=== PATIENT | female | born 1930 | race Caucasian/White ===

== ENCOUNTER 2016-04-14 14:57 | Emergency (ER) | payer MEDICARE, OTHER ==
[2016-04-14 15:25] VITALS: BP 102/49
--- NOTE | 2016-04-14 15:25 | ER Document Report ---
ED Medical Screen (RME) - General Stated Complaint: EAR PAIN Time seen by provider: 15:19 Mode of Arrival: Ambulatory Information source: Patient Notes: 46 yo [address] bailey the urologist today due to sx of bilateral intermiittenet (few seconds) sharp ear pain, frontal headachee and shivers. She had urethral stent placed 1 week ago and has hematuria now, and no bm since the stent placed. TRAVEL OUTSIDE OF THE [place] IN LAST 30 DAYS: No
[2016-04-14 16:03] LABS: ABSOLUTE BASOPHILS # (AUTO) 0.1 10^3/uL (0.0-0.2); ABSOLUTE LYMPHOCYTES (AUTO) 1.9 10^3/uL (0.5-4.7); ABSOLUTE NEUT (AUTO) 10.3 10^3/uL (1.7-8.2); BASOPHILS % (AUTO) 0.4 % (0-2); EOSINOPHILS % (AUTO) 0.1 % (0-6); HEMATOCRIT 38.5 % (36.0-47.0); HEMOGLOBIN 12.9 g/dL (12.0-15.5); HGB HCT DIFFERENCE 0.2; LYMPHOCYTES % (AUTO) 13.2 % (13-45); MEAN CORPUSCULAR HEMOGLOBIN 30.5 pg (27.0-33.4); MEAN CORPUSCULAR HGB CONC 33.6 g/dL (32.0-36.0); MEAN CORPUSCULAR VOLUME 91 fl (80-97); MONOCYTES % (AUTO) 13.8 % (3-13); RED BLOOD COUNT 4.24 10^6/uL (3.72-5.28); RED CELL DISTRIBUTION WIDTH 13.2 % (11.5-14.0); SEGMENTED NEUTROPHILS % (AUTO) 72.5 % (42-78); WHITE BLOOD COUNT 14.2 10^3/uL (4.0-10.5)
[2016-04-14 16:22] LABS: ALANINE AMINOTRANSFERASE 35 U/L (9-52); ALKALINE PHOSPHATASE 56 U/L (38-126); ANION GAP 13 (5-19); ASPARTATE AMINO TRANSFERASE 22 U/L (14-36); BILIRUBIN,TOTAL 1.1 mg/dL (0.2-1.3); BLOOD UREA NITROGEN 16 mg/dL (7-20); CARBON DIOXIDE 27 mmol/L (22-30); CHLORIDE 91 mmol/L (98-107); CREATININE RESULT 0.96 mg/dL (0.52-1.25); GLUCOSE 97 mg/dL (75-110); POTASSIUM 3.9 mmol/L (3.6-5.0); TOTAL PROTEIN 6.5 g/dL (6.3-8.2)
[2016-04-14 17:04] LABS: APPEARANCE,URINE CLOUDY; BILIRUBIN,URINE NEGATIVE (NEGATIVE); GLUCOSE, URINE NEGATIVE (NEGATIVE); KETONES,URINE TRACE mg/dL (NEGATIVE); LEUKOCYTE ESTERASE,URINE MODERATE (NEGATIVE); NITRITE,URINE NEGATIVE (NEGATIVE); PROTEIN,URINE 100 mg/dL (NEGATIVE); URINE SPECIFIC GRAVITY 1.008; UROBILINOGEN,URINE NEGATIVE mg/dL (<2.0)
--- NOTE | 2016-04-14 17:05 | ER Document Report ---
ED General - General Chief Complaint: Ear Pain Stated Complaint: EAR PAIN Time seen by provider: 16:58 Mode of Arrival: Ambulatory Information source: Patient Notes: 86-year-old female presents to ED for fever and chills since her urinary stent placed on Friday by Dr. Castaneda. She has also had bilateral earaches with a headache for a few days. She states she is also not had a stool since Friday and she has chronic constipation and has medications at home. TRAVEL OUTSIDE OF THE [place] IN LAST 30 DAYS: No - HPI Onset: Other Onset/Duration: Gradual - Friday, Worse Quality of pain: Achy, Throbbing - Headache and ear pain Severity: Moderate Pain Level: 4 Associated symptoms: Earache, Headache, Other - Hematuria states no BM since Friday Exacerbated by: Denies Relieved by: Denies Similar symptoms previously: Yes Recently seen / treated by doctor: Yes - Related Data Allergies/Adverse Reactions: Sulfa (Sulfonamide Antibiotics) Allergy (Verified 04/14/16 15:27) Past Medical History - General Information source: Patient - Social History Smoking Status: Never Smoker Cigarette use (# per day): No Chew tobacco use (# tins/day): No Smoking Education Provided: No Frequency of alcohol use: None Drug Abuse: None Lives with: Family Family History: Reviewed & Not Pertinent Patient has suicidal ideation: No Patient has homicidal ideation: No - Past Medical History Cardiac Medical History: Reports: Hx Atrial Fibrillation Pulmonary Medical History: Reports: None EENT Medical History: Reports: None Neurological Medical History: Reports: None Endocrine Medical History: Reports: None Renal/ Medical History: Reports: Hx Kidney Stones, Hx Ovarian Cysts Malignancy Medical History: Reports: Hx Skin Cancer GI Medical History: Reports: Hx Gastroesophageal Reflux Disease, Hx Colonoscopy , Hx Endoscopy Musculoskeltal Medical History: Reports Hx Arthritis, Reports Hx Musculoskeletal Deformity Skin Medical History: Reports None Psychiatric Medical History: Reports: None Traumatic Medical History: Reports: None Infectious Medical History: Reports: None Past Surgical History: Reports: Hx Cholecystectomy, Hx Hysterectomy, Hx Kidney ( Renal Surgery) - Urethral stents and lithotripsy, Hx Orthopedic Surgery - Toe surgeries bilateral shoulders due to bursitis and arthritis Review of Systems - Review of Systems Constitutional: Malaise EENT: Ear pain, Nose discharge, Sinus discharge Cardiovascular: No symptoms reported Respiratory: No symptoms reported Gastrointestinal: No symptoms reported Genitourinary: Flank pain - Right, Hematuria Female Genitourinary: No symptoms reported Musculoskeletal: No symptoms reported Skin: No symptoms reported Hematologic/Lymphatic: No symptoms reported Neurological/Psychological: Headaches -: Yes All other systems reviewed and negative Physical Exam - Vital signs Vitals: Temp Pulse Resp BP Pulse Ox 99.3 F 97 16 102/49 L 96 04/14/16 15:24 04/14/16 15:24 04/14/16 15:24 04/14/16 15:24 04/14/16 15:24 Interpretation: Normal - General General appearance: Appears well, Alert - HEENT Head: Normocephalic, Atraumatic Eyes: Normal Pupils: PERRL Ears: Normal External canal: Normal Tympanic membrane: Normal Sinus: Normal Nasal: Purulent discharge, Swelling Mouth/Lips: Normal Mucous membranes: Normal Pharynx: Post nasal drainage Neck: Normal - Respiratory Respiratory status: No respiratory distress Chest status: Nontender Breath sounds: Normal Chest palpation: Normal - Cardiovascular Rhythm: Regular Heart sounds: Normal auscultation Murmur: No - Abdominal Inspection: Normal Distension: No distension Bowel sounds: Normal Tenderness: Nontender Organomegaly: No organomegaly - Back Back: Normal, Nontender, CVA tenderness - Right - Extremities General upper extremity: Normal inspection, Nontender, Normal color, Normal ROM , Normal temperature General lower extremity: Normal inspection, Nontender, Normal color, Normal ROM , Normal temperature, Normal weight bearing. No: Feliz's sign - Neurological Neuro grossly intact: Yes Cognition: Normal Orientation: AAOx4 [place] Coma Scale Eye Opening: Spontaneous Harper Coma Scale Verbal: Oriented [place] Coma Scale Motor: Obeys Commands Harper Coma Scale Total: 15 Speech: Normal Motor strength normal: LUE, RUE, LLE, RLE Sensory: Normal - Psychological Associated symptoms: Normal affect, Normal mood - Skin Skin Temperature: Warm Skin Moisture: Dry Skin Color: Normal Course - Re-evaluation Re-evalutation: 04/14/16 17:22 Discussed labs with patient and family. - Vital Signs Vital signs: Temp Pulse Resp BP Pulse Ox 99.3 F 97 16 102/49 L 96 04/14/16 15:24 04/14/16 15:24 04/14/16 15:24 04/14/16 15:24 04/14/16 15:24 - Laboratory Result Diagrams: 04/14/16 15:55 04/14/16 15:55 Laboratory results interpreted by me: 04/14/16 04/14/16 04/14/16 15:55 15:55 16:36 WBC 14.2 H Plt Count 146 L Monocytes % 13.8 H Absolute Neutrophils 10.3 H Absolute Monocytes 2.0 H Sodium 131.0 L Chloride 91 L Est GFR (Non-Af Amer) 55 L Urine Protein 100 H Urine Ketones TRACE H Urine Blood LARGE H Ur Leukocyte Esterase MODERATE H Urine Ascorbic Acid 40 H Discharge - Discharge Clinical Impression: Hematuria URI (upper respiratory infection) Qualifiers: URI type: unspecified URI Qualified Code(s): J06.9 - Acute upper respiratory infection, unspecified Condition: Stable Disposition: HOME, SELF-CARE Additional Instructions: Hematuria Hematuria, or blood in your urine, can be caused by minor medical problems , such as a bladder infection, or by more serious medical conditions, such as kidney stones or even tumors of the bladder or kidney. If the cause of the hematuria is known (such as a bladder infection) and can be treated, it may not need further evaluation. If the cause is not known, it will usually require further evaluation by a specialist, such as a urologist. In particular, unexplained hematuria in the older patient must be evaluated to rule out a serious condition, such as a bladder or kidney tumor. If the hematuria worsens or you are passing clots and then are unable to urinate, you should be re-evaluated. A catheter may need to be placed in the bladder to permit passage of urine. If you develop high fever, severe pain, or other new or worsening symptoms, return to the Emergency Department for re- evaluation. UPPER RESPIRATORY ILLNESS: You have a viral infection of the respiratory passages -- a "cold." This common infection causes nasal congestion, drainage, and often sore throat and cough. It is highly contagious. The disease usually lasts about 10 to 14 days. There is no "cure" for the viral infection -- it must run its course. If there is a complication, such as bacterial infection in the nose, sinuses, middle ear, or bronchial tubes, antibiotics may be required. The antibiotics won't affect the virus. Drink plenty of fluids. A humidifier may help. An expectorant medication or decongestant may make you more comfortable. Use acetaminophen or ibuprofen for fever or aches. See the doctor if fever persists over two days, if there is any significant worsening of your symptoms, or if you simply fail to improve as expected. USE OF ACETAMINOPHEN (Tylenol): Acetaminophen may be taken for pain relief or fever control. It's much safer than aspirin, offering a wider range of "safe" dosages. It is safe during . Some brand names are Tylenol, Panadol, Datril, Anacin 3, Tempra, and Liquiprin. Acetaminophen can be repeated every four hours. The following are maximum recommended dosages: >89 pounds or adults 650 mg to 900 mg Acetaminophen can be repeated every four hours. Maximum dose not to exceed 4000 mg a day. Cephalexin The antibiotic you've been prescribed is a member of the cephalosporin class. This type of antibiotic covers a wide variety of infections, including those of the skin, lungs, and urinary tract. It's useful for staph infections. This antibiotic is slightly similar to the penicillin family. In rare cases , a person who is allergic to penicillin will also be allergic to this medication. If you have had a severe allergic reaction to penicillin, and have not taken this antibiotic since that time, notify your doctor. Antibiotics which cover many germs ("broad spectrum" antibiotics) are more likely to cause diarrhea or "yeast" infections. Women prone to vaginal yeast problems may suffer an attack after taking this antibiotic. In infants, oral thrush (white spots "stuck" on the cheek) or yeast diaper rash may result. See your doctor if these problems occur. Call at once if you develop itching, hives , shortness of breath, or lightheadedness. FOLLOW-UP CARE: If you have been referred to a physician for follow-up care, call the physician s office for an appointment as you were instructed or within the next two days. If you experience worsening or a significant change in your symptoms, notify the physician immediately or return to the Emergency Department at any time for re-evaluation. Prescriptions: Cephalexin Monohydrate [Keflex 500 mg Capsule] 500 mg PO QID 7 Days Referrals: MARK CRABTREE MD [ACTIVE STAFF] - Follow up as needed
[2016-04-14] MEDS ORDERED: ACETAMINOPHEN 325 MG TABLET PO ONE (17:21)
[2016-04-14] MEDS ORDERED: CEPHALEXIN 500 MG CAPSULE PO ONE (17:23)
== END 2016-04-14 17:33 | disposition home or self-care (01) ==
LOC: ER 14:57
DX: J06.9 Acute upper respiratory infection, unspecified (principal); R31.9 Hematuria, unspecified; H92.03 Otalgia, bilateral; R50.9 Fever, unspecified; R51 Headache; R53.81 Other malaise; K59.00 Constipation, unspecified; Z79.899 Other long term (current) drug therapy; Z98.890 Other specified postprocedural states; Z88.2 Allergy status to sulfonamides; Z85.828 Personal history of other malignant neoplasm of skin; J34.89 Other specified disorders of nose and nasal sinuses
CPT/HCPCS: 99283; 36415; 87086; 85025; 80053; 81001; A9270 ×2

== ENCOUNTER 2019-08-02 10:47 | Inpatient (IN) | payer MEDICARE ==
[2019-08-02 11:24] LABS: HEMOGLOBIN 10.7 g/dL (12.0-15.5); MEAN CORPUSCULAR HEMOGLOBIN 32.2 pg (27.0-33.4); MEAN CORPUSCULAR HGB CONC 34.6 g/dL (32.0-36.0); MEAN CORPUSCULAR VOLUME 93 fl (80-97); PLATELET COUNT 121 10^3/uL (150-450); RED BLOOD COUNT 3.34 10^6/uL (3.72-5.28); RED CELL DISTRIBUTION WIDTH 18.3 % (11.5-14.0); WHITE BLOOD COUNT 5.5 10^3/uL (4.0-10.5)
[2019-08-02 11:28] LABS: APPEARANCE,URINE SLIGHTLY-CLOUDY; BILIRUBIN,URINE NEGATIVE (NEGATIVE); COLOR,URINE YELLOW; GLUCOSE, URINE NEGATIVE (NEGATIVE); KETONES,URINE NEGATIVE (NEGATIVE); LEUKOCYTE ESTERASE,URINE NEGATIVE (NEGATIVE); NITRITE,URINE NEGATIVE (NEGATIVE); PROTEIN,URINE NEGATIVE (NEGATIVE); URINE SPECIFIC GRAVITY 1.008; UROBILINOGEN,URINE NEGATIVE mg/dL (<2.0)
[2019-08-02 11:37] LABS: ALBUMIN 3.3 g/dL (3.5-5.0); ALKALINE PHOSPHATASE 46 U/L (38-126); ANION GAP 7 (5-19); ASPARTATE AMINO TRANSFERASE 24 U/L (14-36); BILIRUBIN,TOTAL 0.4 mg/dL (0.2-1.3); BLOOD UREA NITROGEN 41 mg/dL (7-20); CARBON DIOXIDE 28 mmol/L (22-30); CHLORIDE 96 mmol/L (98-107); GLUCOSE 87 mg/dL (75-110)
[2019-08-02 11:50] LABS: CALCIUM 14.3 mg/dL (8.4-10.2)
--- NOTE | 2019-08-02 12:00 | RADIOLOGY REPORT (SQ) ---
EXAM DESCRIPTION: CHEST SINGLE VIEW IMAGES COMPLETED DATE/TIME: 08/02/2019 11:31 am REASON FOR STUDY: bed 18 weakness COMPARISON: None. EXAM PARAMETERS: NUMBER OF VIEWS: One view. TECHNIQUE: An AP view of the chest was obtained. RADIATION DOSE: NA LIMITATIONS: None. FINDINGS: LUNGS AND PLEURA: COPD without a superimposed consolidation, pleural effusion or pneumotho rax. MEDIASTINUM AND HILAR STRUCTURES: No mediastinal or hilar contour abnormality. HEART AND VASCULAR STRUCTURES: The cardiac silhouette and pulmonary vasculature are within normal merino its. BONES: No acute findings. HARDWARE: None in the chest. OTHER: No other finding. IMPRESSION: COPD without a superimposed acute cardiopulmonary process. TECHNICAL DOCUMENTATION: JOB ID: [id number] 2010 [employer]- All Rights Reserved Reading location - IP/workstation name: [email or web address]
[2019-08-02] MEDS ORDERED: PAMIDRONATE DISODIUM INJ 30 MG/10 ML VIAL IV ONE (12:09)
[2019-08-02] MEDS ORDERED: NORMAL SALINE 1000 ML 1,000 ML IV ONE (12:10)
--- NOTE | 2019-08-02 12:49 | RADIOLOGY REPORT (SQ) ---
EXAM DESCRIPTION: KNEE RIGHT 3 VIEWS IMAGES COMPLETED DATE/TIME: 08/02/2019 12:38 pm REASON FOR STUDY: fall, pain, swelling COMPARISON: None. NUMBER OF VIEWS: Three views. TECHNIQUE: AP, lateral, and single oblique radiographic images acquired of the right knee. LIMITATIONS: None. FINDINGS: MINERALIZATION: Osteopenia. BONES: Status post TKA; the hardware is in anatomic alignment. There is no periprosthetic fracture. JOINT: No evidence of lipohemarthrosis. SOFT TISSUES: Vascular calcifications. OTHER: No other finding. IMPRESSION: Status post TKA. The hardware is in anatomic alignment. There is no periprosthetic fra cture or evidence of lipohemarthrosis. TECHNICAL DOCUMENTATION: JOB ID: [id number] 2010 [employer]- All Rights Reserved Reading location - IP/workstation name: [email or web address]
[2019-08-02] MEDS ORDERED: PAMIDRONATE DISODIUM IV ONE (13:00)
[2019-08-02] MEDS ORDERED: NORMAL SALINE IV ONE (13:00)
--- NOTE | 2019-08-02 14:13 | ER Document Report ---
Entered by LUPILLO FISH SCRIBE 08/02/19 1205 Acting as scribe for:DULCE MARIA RAMIREZ MD ED Dizziness/Weakness - General Chief Complaint: General Weakness Stated Complaint: WEAKNESS Time Seen by Provider: 08/02/19 11:41 Primary Care Provider: NANI DEMPSEY MD [Primary Care Provider] - Follow up as needed Information source: Patient, Emergency Med Personnel, Office - Dr. Lozada, [facility] Records Notes: This 89-year-old female patient brought the emergency room after sliding off the toilet this morning and too weak to get up off the floor. She states that she did hurt her right knee when she fell off the toilet. She reports increasing weakness since Friday. She is mildly demented. I discussed her case with Dr. 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 When I reported her electrolytes from today, Dr. Lozada reports that this is much worse, but her elevated creatinine usually responds to IV fluids, and recommends she get pamidronate 30mg for the hypercalcemia. TRAVEL OUTSIDE OF THE [place] IN LAST 30 DAYS: No - Related Data Allergies/Adverse Reactions: Sulfa (Sulfonamide Antibiotics) Allergy (Verified 04/14/16 15:27) Past Medical History - General Information source: Patient, Emergency Med Personnel, Office, [facility] Records - Social History Smoking Status: Former Smoker Cigarette use (# per day): No Chew tobacco use (# tins/day): No Smoking Education Provided: No Frequency of alcohol use: None Drug Abuse: None Lives with: Alone - Has home health at least 5 days a week Family History: Reviewed & Not Pertinent Patient has suicidal ideation: No Patient has homicidal ideation: No - Past Medical History Cardiac Medical History: Reports: Hx Atrial Fibrillation Renal/ Medical History: Reports: Hx Kidney Stones, Hx Ovarian Cysts, Hx Renal Insufficiency Malignancy Medical History: Reports: Hx Skin Cancer, Other - Multiple myeloma GI Medical History: Reports: Hx Gastroesophageal Reflux Disease, Hx Colonoscopy, Hx Endoscopy Musculoskeletal Medical History: Reports Hx Arthritis, Reports Hx Musculoskeletal Deformity Psychiatric Medical History: Reports: Hx Dementia Past Surgical History: Reports: Hx Cholecystectomy, Hx Hysterectomy, Hx Kidney (Renal Surgery) - Urethral stents and lithotripsy, Hx Orthopedic Surgery - Toe, bilateral shoulders d/t bursitis & arthritis. Right total knee. - Immunizations Hx Diphtheria, Pertussis, Tetanus Vaccination: Yes Review of Systems - Review of Systems Constitutional: See HPI, Weakness EENT: No symptoms reported Cardiovascular: No symptoms reported Respiratory: No symptoms reported Gastrointestinal: No symptoms reported Genitourinary: No symptoms reported Female Genitourinary: Post menopausal Musculoskeletal: Joint pain Skin: No symptoms reported Hematologic/Lymphatic: No symptoms reported Neurological/Psychological: Confusion, Dementia Physical Exam - Vital signs Vitals: Pulse Ox 96 08/02/19 10:50 - General General appearance: Appears well, Alert In distress: None - HEENT Head: Normocephalic, Atraumatic Eyes: Normal Pupils: PERRL - Respiratory Respiratory status: No respiratory distress Breath sounds: Normal - Cardiovascular Rhythm: Irregularly irregular Heart sounds: Normal auscultation Murmur: Yes Systolic murmur grade 1-6: 2 - Abdominal Inspection: Normal Bowel sounds: Normal Tenderness: Nontender - Back Back: Normal - Extremities General upper extremity: Normal inspection General lower extremity: Other - Right knee a little swelling, very tender to palpate anterolateral and anteromedial aspects of the knee. Tender to palpate over the greater trochanters of both hips, no pain with internal or external rotation of the hips. - Neurological Neuro grossly intact: Yes - Psychological Associated symptoms: Normal affect, Normal mood - Skin Skin Temperature: Warm Skin Moisture: Dry Skin Color: Normal Course - Vital Signs Vital signs: Temp Pulse Resp BP Pulse Ox 97.7 F 20 128/63 H 98 08/02/19 11:22 08/02/19 11:01 08/02/19 11:01 08/02/19 11:01 - Laboratory Result Diagrams: 08/02/19 11:00 08/02/19 11:00 Laboratory results interpreted by me: 08/02/19 08/02/19 08/02/19 11:00 11:00 11:00 RBC 3.34 L Hgb 10.7 L Hct 31.0 L RDW 18.3 H Plt Count 121 L Sodium 130.9 L Chloride 96 L BUN 41 H Creatinine 3.19 H Est GFR ( Amer) 17 L Est GFR (MDRD) Non-Af 14 L Calcium 14.3 H* Magnesium 2.6 H Creatine Kinase Albumin 3.3 L Urine Ascorbic Acid 08/02/19 08/02/19 11:14 12:41 RBC Hgb Hct RDW Plt Count Sodium Chloride BUN Creatinine Est GFR ( Amer) Est GFR (MDRD) Non-Af Calcium Magnesium Creatine Kinase 29 L Albumin Urine Ascorbic Acid 20 H - Diagnostic Test Radiology reviewed: Image reviewed, Reports reviewed - Chest x-ray shows COPD with no acute changes. Right knee x-ray shows status post total knee with no a cute changes. - EKG Interpretation by Me EKG shows normal: Sinus rhythm, [place], Intervals, QRS Complexes, ST-T Waves Rate: Tachycardia - 101 Rhythm: A.Fib, PVC's [place]/QRS: LAHB/LAFB Voltage: Consistant with LVH - Consults Dr. Lozada Time consulted: 12:08 Consulted provider: will see as inpatient Dr. Santoyo Time consulted: 13:25 Consulted provider: will come to ER Critical Care Note - Critical Care Note Total time excluding time spent on procedures (mins): 35 Discharge - Discharge Clinical Impression: Weakness, Hypercalcemia of malignancy, Chronic atrial fibrillation Multiple myeloma Qualifiers: Multiple myeloma remission status: not in remission Qualified Code(s): C90.00 - Multiple myeloma not having achieved remission [id number] renal failure Qualifiers: Acute renal failure type: unspecified Chronic kidney disease stage: stage 3 (moderate) Qualified Code(s): N17.9 - Acute kidney failure, unspecified; N18.3 - Chronic kidney disease, stage 3 (moderate) Contusion of right knee Qualifiers: Encounter type: initial encounter Qualified Code(s): S80.01XA - Contusion of right knee, initial encounter Condition: Stable Disposition: ADMITTED INPATIENT Admitting Provider: Natanael (Hospitalist) Unit Admitted: Telemetry Referrals: NANI DEMPSEY MD [Primary Care Provider] - Follow up as needed I personally performed the services described in the documentation, reviewed and edited the documentation which was dictated to the scribe in my presence, and it accurately records my words and actions.
--- NOTE | 2019-08-02 15:13 | EKG REPORT ---
SEVERITY:- ABNORMAL ECG - ATRIAL FIBRILLATION, V-RATE 85-116 MULTIFORM VENTRICULAR PREMATURE COMPLEXES LEFT ANTERIOR FASCICULAR BLOCK PROBABLE LVH WITH SECONDARY REPOL ABNRM ANTERIOR Q WAVES, POSSIBLY DUE TO LVH : Confirmed by: Chelita Cloud MD 02-Aug-2019 15:12:33
[2019-08-02] MEDS ORDERED: PROMETHAZINE HCL INJ 25 MG/1 ML VIAL IV PRN (15:18)
--- NOTE | 2019-08-02 16:03 | PDOC CONSULTATION ---
Consultation Consult Date: 08/02/19 Provider Consulted: ILIA PEACE Consult reason:: Hematology Oncology consultation was requested for patient with hypercalcemia and presumed multiple myeloma. History of Present Illness Admission Date/PCP: 08/02/19 14:23 NANI DEMPSEY MD History of Present Illness: SINCERE KENT is a 89 year old female who has been in and out of the hospital 3 times in the past few weeks. She has been found to have hypercalcemia, acute on chronic renal failure, and an abnormal monoclonal gammopathy consistent with possible Myeloma. However, patient has declined full work-up to confirm myeloma and has opted for palliative care. One week ago, we discussed IV bisphosphonate treatment for her hypercalcemia, but due to GFR, this was not given. She was asymptomatic at the time. However, over the past 3 days, she has stopped eating, had increased nausea, increased weakness, and confusion. In the ED, she was found to have Ca of 14.3 (was 12.7 on 07/19/19) and Cr of 3.19 (was 2.5 on 07/19/19). Due to COVID-19 restrictions, I have not examined patient, but I have spoken with the patient, her daughter, and the ED and hospitalist physicians caring for her today. Past Medical History Cardiac Medical History: Reports: Atrial Fibrillation Malignancy Medical History: Reports: Skin Cancer, Other - Multiple myeloma GI Medical History: Reports: Gastroesophageal Reflux Disease Musculoskeltal Medical History: Reports: Arthritis Psychiatric Medical History: Reports: Dementia Past Surgical History Past Surgical History: Reports: Cholecystectomy, Hysterectomy, Orthopedic Surgery - Toe, bilateral shoulders d/t bursitis & arthritis. Right total knee. Social History Lives with: Alone - Has home health at least 5 days a week Smoking Status: Former Smoker Electronic Cigarette use?: No Family History Parental Family History Reviewed: Yes - Mother colon cancer, CVA. Father Stomach cancer Children Family History Reviewed: Yes Sibling(s) Family History Reviewed.: Yes - Brother with Lung cancer, another brother with stomach and colon cancer Medication/Allergy Home Medications: Aspirin [Ecotrin 81 mg EC Tablet] 81 mg PO DAILY 08/02/19 Cholecalciferol (Vitamin D3) [Vitamin D3 1000 Unit Tablet] 1,000 unit PO DAILY 08/02/19 Cyclosporine 0.05% Oph Emulsio [Restasis 0.05% Oph Emulsion Pf 0.4 ml] 1 drop OU Q12 08/02/19 Diltiazem HCl [Cardizem 30 mg Tablet] 30 mg PO Q12 08/02/19 Erythromycin Base [E-Mycin 0.5% Oph Ointment 3.5 gm] 1 applic OS QHS 08/02/19 Estrogens,Conjugated [Premarin 0.3 mg Tablet] 0.3 mg PO QHS 08/02/19 Loratadine [Claritin 10 mg Tablet] 10 mg PO DAILY 08/02/19 Lorazepam [Ativan 1 mg Tablet] 0.5 mg PO DAILYP PRN 08/02/19 Melatonin 3 mg PO QHS 08/02/19 Montelukast Sodium [Singulair 10 mg Tablet] 10 mg PO QHS 08/02/19 Niacin 500 mg PO DAILY 08/02/19 [place]-3/Dha/Epa/Fish Oil [Fish Oil 1,000 mg Softgel] 1,000 mg PO DAILY 08/02/19 Ondansetron [Ondansetron Odt] 8 mg PO Q8HP PRN 08/02/19 Polyvinyl Alcohol/Povidone/Pf [Refresh Classic Eye Drops] 1 drop OU QID 08/02/19 Potassium Citrate [Potassium Citrate ER] 10 meq PO BID 08/02/19 Triamterene/Hydrochlorothiazid [Triamterene-Hctz 37.5-25 mg Tb] 1 tab PO DAILY 08/02/19 Allergies/Adverse Reactions: Sulfa (Sulfonamide Antibiotics) Allergy (Verified 04/14/16 15:27) Review of Systems Constitutional: ABSENT: fever(s), headache(s) Eyes: ABSENT: visual disturbances Ears: ABSENT: hearing changes Nose, Mouth, and Throat: ABSENT: sore throat Cardiovascular: ABSENT: chest pain Respiratory: PRESENT: dyspnea Gastrointestinal: PRESENT: heartburn, nausea Genitourinary: ABSENT: difficulty urinating Integumentary: ABSENT: rash Neurological: PRESENT: weakness Hematologic/Lymphatic: ABSENT: easy bleeding Physical Exam Vital Signs: Temp Pulse Resp BP Pulse Ox 97.7 F 19 124/59 L 100 08/02/19 11:22 08/02/19 13:01 08/02/19 13:01 08/02/19 13:01 Intake & Output 08/01/19 08/02/19 08/03/19 06:59 06:59 06:59 Intake Total 1000 Balance 1000 Weight 58.967 kg Exam: Due to COVID-19 restrictions, full Exam was not possible. Results Laboratory Results: 08/02/19 11:00 08/02/19 11:00 08/02/19 08/02/19 08/02/19 11:00 11:00 11:00 WBC 5.5 RBC 3.34 L Hgb 10.7 L Hct 31.0 L MCV 93 MCH 32.2 MCHC 34.6 RDW 18.3 H Plt Count 121 L Sodium 130.9 L Potassium 5.0 Chloride 96 L Carbon Dioxide 28 Anion Gap 7 BUN 41 H Creatinine 3.19 H Est GFR ( Amer) 17 L Glucose 87 Calcium 14.3 H* Magnesium 2.6 H Total Bilirubin 0.4 AST 24 Alkaline Phosphatase 46 Total Protein 7.0 Albumin 3.3 L PTH Intact Urine Color Urine Appearance Urine pH Ur Specific [place] Urine Protein Urine Glucose (UA) Urine Ketones Urine Blood Urine Nitrite Ur Leukocyte Esterase Urine WBC (Auto) Urine RBC (Auto) 08/02/19 08/02/19 11:14 13:15 WBC RBC Hgb Hct MCV MCH MCHC RDW Plt Count Sodium Potassium Chloride Carbon Dioxide Anion Gap BUN Creatinine Est GFR ( Amer) Glucose Calcium Magnesium Total Bilirubin AST Alkaline Phosphatase Total Protein Albumin PTH Intact 10.8 Urine Color YELLOW Urine Appearance SLIGHTLY-CLOUDY Urine pH 6.0 Ur Specific [place] 1.008 Urine Protein NEGATIVE Urine Glucose (UA) NEGATIVE Urine Ketones NEGATIVE Urine Blood NEGATIVE Urine Nitrite NEGATIVE Ur Leukocyte Esterase NEGATIVE Urine WBC (Auto) 4 Urine RBC (Auto) 0 08/02/19 08/02/19 12:41 12:41 Creatine Kinase 29 L Troponin I 0.012 Impressions: Chest X-Ray 08/02/19 00:00 IMPRESSION: COPD without a superimposed acute cardiopulmonary process. Knee X-Ray 08/02/19 12:23 IMPRESSION: Status post TKA. The hardware is in anatomic alignment. There is no periprosthetic fracture or evidence of lipohemarthrosis. Assessment & Plan - Plan Summary Plan Summary: 1. hypercalcemia - thought to be secondary to myeloma. IV fluids and Pamidronate have been ordered. Watch Ca levels. 2. Acute on chronic renal failure - usually improves with IV fluids, but patient has not been doing a good job of keeping up with PO intake. She declines a feeding tube. 3. M-spike with presumed myeloma. Patient has refused any further work-up or treatment for this and is a great candidate for Hospice services. Patient and daughter agree with this plan, but currently, they are requesting SNF placement, as she does not have full time paramedic caregivers at home. I will try to arrange for SNF placement. Please feel free to call me with any quetions or concerns.
--- NOTE | 2019-08-02 16:12 | PDOC H&P ---
History of Present Illness Admission Date/PCP: 08/02/19 14:23 NANI DEMPSEY MD Patient complains of: Generalized weakness History of Present Illness: SINCERE KENT is a 89 year old female with history of possible multiple myeloma based of recent M spike last month, atrial fibrillation, who comes into the hospital for evaluation of weakness and debility. Patient is suspected to have multiple myeloma and is being followed by Dr. Lozada. This was based of M spike on SPEP/immunofixation. Patient had declined bone biopsy for confirmation of diagnosis. Over the past month patient has shown significant decline in functional status as well as sluggish behavior. 1 week ago, she was seen by and noted to be hypercalcemic but asymptomatic at the time. Bisphosphonate therapy was held off because of asymptomatic nature and renal function. Yesterday, she was at home with her friend was trying to help her up and patient felt too weak to stand. Subsequently brought to the hospital for evaluation. In the hospital patient was noted to have hypercalcemia and MACI. Referred to hospitalist service for admission. Patient states that she is extremely fatigued. Gets occasional pain in her knees. Denies abdominal pain. Past Medical History Cardiac Medical History: Reports: Atrial Fibrillation Malignancy Medical History: Reports: Skin Cancer, Other - possible Multiple myeloma GI Medical History: Reports: Gastroesophageal Reflux Disease Musculoskeltal Medical History: Reports: Arthritis Past Surgical History Past Surgical History: Reports: Cholecystectomy, Hysterectomy, Orthopedic Wynn rgery - Toe, bilateral shoulders d/t bursitis & arthritis. Right total knee. Social History Lives with: Alone - Has home health at least 5 days a week Smoking Status: Never Smoker Electronic Cigarette use?: No Frequency of Alcohol Use: None Hx Recreational Drug Use: No - Advance Directive Resuscitation Status: Do Not Resuscitate - DNR/DNI Family History Family History: Malignancy Parental Family History Reviewed: Yes Children Family History Reviewed: No Sibling(s) Family History Reviewed.: Yes Medication/Allergy Home Medications: Aspirin [Ecotrin 81 mg EC Tablet] 81 mg PO DAILY 08/02/19 Cholecalciferol (Vitamin D3) [Vitamin D3 1000 Unit Tablet] 1,000 unit PO DAILY 08/02/19 Cyclosporine 0.05% Oph Emulsio [Restasis 0.05% Oph Emulsion Pf 0.4 ml] 1 drop OU Q12 08/02/19 Diltiazem HCl [Cardizem 30 mg Tablet] 30 mg PO Q12 08/02/19 Erythromycin Base [E-Mycin 0.5% Oph Ointment 3.5 gm] 1 applic OS QHS 08/02/19 Estrogens,Conjugated [Premarin 0.3 mg Tablet] 0.3 mg PO QHS 08/02/19 Loratadine [Claritin 10 mg Tablet] 10 mg PO DAILY 08/02/19 Lorazepam [Ativan 1 mg Tablet] 0.5 mg PO DAILYP PRN 08/02/19 Melatonin 3 mg PO QHS 08/02/19 Montelukast Sodium [Singulair 10 mg Tablet] 10 mg PO QHS 08/02/19 Niacin 500 mg PO DAILY 08/02/19 [place]-3/Dha/Epa/Fish Oil [Fish Oil 1,000 mg Softgel] 1,000 mg PO DAILY 08/02/19 Ondansetron [Ondansetron Odt] 8 mg PO Q8HP PRN 08/02/19 Polyvinyl Alcohol/Povidone/Pf [Refresh Classic Eye Drops] 1 drop OU QID 08/02/19 Potassium Citrate [Potassium Citrate ER] 10 meq PO BID 08/02/19 Triamterene/Hydrochlorothiazid [Triamterene-Hctz 37.5-25 mg Tb] 1 tab PO DAILY 08/02/19 Allergies/Adverse Reactions: Sulfa (Sulfonamide Antibiotics) Allergy (Verified 04/14/16 15:27) Review of Systems Constitutional: PRESENT: chills. ABSENT: fever(s) Eyes: ABSENT: visual disturbances Nose, Mouth, and Throat: ABSENT: headache(s) Cardiovascular: ABSENT: chest pain Respiratory: ABSENT: cough, dyspnea Gastrointestinal: PRESENT: constipation, nausea. ABSENT: diarrhea, vomiting Genitourinary: ABSENT: dysuria Musculoskeletal: PRESENT: other - Knee pain Integumentary: ABSENT: diaphoresis Neurological: ABSENT: confusion Endocrine: ABSENT: polyuria Allergic/Immunologic: PRESENT: other - Denies rhinorrhea or nasal congestion Physical Exam Vital Signs: Temp Pulse Resp BP Pulse Ox 97.7 F 19 124/59 L 100 08/02/19 11:22 08/02/19 13:01 08/02/19 13:01 08/02/19 13:01 Intake & Output 08/01/19 08/02/19 08/03/19 06:59 06:59 06:59 Intake Total 1000 Balance 1000 Weight 58.967 kg General appearance: PRESENT: no acute distress, cooperative, thin, other - Appears very fatigued Neck exam: ABSENT: JVD Respiratory exam: PRESENT: clear to auscultation kalyn, unlabored. ABSENT: tachypnea, wheezes Cardiovascular exam: PRESENT: RRR, +S1, +S2, systolic murmur - Rusb. ABSENT: tachycardia GI/Abdominal exam: PRESENT: soft. ABSENT: rebound, rigid, tenderness Extremities exam: ABSENT: pedal edema Neurological exam: PRESENT: alert, awake, oriented to person, oriented to place, oriented to time, oriented to situation Psychiatric exam: PRESENT: flat affect. ABSENT: agitated, anxious Focused psych exam: ABSENT: pressured speech Skin exam: PRESENT: dry Results Laboratory Results: 08/02/19 11:00 08/02/19 11:00 08/02/19 08/02/19 08/02/19 11:00 11:00 11:00 WBC 5.5 RBC 3.34 L Hgb 10.7 L Hct 31.0 L MCV 93 MCH 32.2 MCHC 34.6 RDW 18.3 H Plt Count 121 L Sodium 130.9 L Potassium 5.0 Chloride 96 L Carbon Dioxide 28 Anion Gap 7 BUN 41 H Creatinine 3.19 H Est GFR ( Amer) 17 L Glucose 87 Calcium 14.3 H* Magnesium 2.6 H Total Bilirubin 0.4 AST 24 Alkaline Phosphatase 46 Total Protein 7.0 Albumin 3.3 L PTH Intact Urine Color Urine Appearance Urine pH Ur Specific [place] Urine Protein Urine Glucose (UA) Urine Ketones Urine Blood Urine Nitrite Ur Leukocyte Esterase Urine WBC (Auto) Urine RBC (Auto) 08/02/19 08/02/19 11:14 13:15 WBC RBC Hgb Hct MCV MCH MCHC RDW Plt Count Sodium Potassium Chloride Carbon Dioxide Anion Gap BUN Creatinine Est GFR ( Amer) Glucose Calcium Magnesium Total Bilirubin AST Alkaline Phosphatase Total Protein Albumin PTH Intact 10.8 Urine Color YELLOW Urine Appearance SLIGHTLY-CLOUDY Urine pH 6.0 Ur Specific [place] 1.008 Urine Protein NEGATIVE Urine Glucose (UA) NEGATIVE Urine Ketones NEGATIVE Urine Blood NEGATIVE Urine Nitrite NEGATIVE Ur Leukocyte Esterase NEGATIVE Urine WBC (Auto) 4 Urine RBC (Auto) 0 08/02/19 08/02/19 12:41 12:41 Creatine Kinase 29 L Troponin I 0.012 Impressions: Chest X-Ray 08/02/19 00:00 IMPRESSION: COPD without a superimposed acute cardiopulmonary process. Knee X-Ray 08/02/19 12:23 IMPRESSION: Status post TKA. The hardware is in anatomic alignment. There is no periprosthetic fracture or evidence of lipohemarthrosis. Assessment and Plan - Diagnosis (1) Hypercalcemia of malignancy Is this a current diagnosis for this admission?: Yes Plan: Patient is suspected to have multiple myeloma. Follows with Dr. Lozada. Now having asymptomatic hypercalcemia with corrected calcium of 15, constipation, renal failure and some bone pains. Will give a dose of pamidronate despite renal function. Will place on continuous IV fluids. Trend CMP. (2) MACI (acute kidney injury) Is this a current diagnosis for this admission?: Yes Plan: Likely secondary to hypercalcemia and suspected multiple myeloma. Will give some fluids. Trend creatinine. (3) Monoclonal gammopathy Is this a current diagnosis for this admission?: Yes Plan: Patient diagnosed last month after being found to have M spike and findings consistent with multiple myeloma. However patient refused completion of work-up and bone biopsy to confirm the diagnosis of MM. She has had rapid decline in the past 1 month in terms of functional status and renal function. Followed by Dr. Lozada who has been consulted and recommends that patient is a good candidate for hospice services. Dr. Lozada has initiated hospice conversations with patient and family in the past and will be following up with them to see if they are ready to proceed with this. (4) Chronic atrial fibrillation Is this a current diagnosis for this admission?: Yes Plan: Will resume diltiazem once medication reconciliation is completed. Patient states that she is not on any anticoagulation. (5) Weakness Is this a current diagnosis for this admission?: Yes Plan: Likely secondary to malignancy and hypercalcemia. Also patient is very sluggis h. Patient has not been able to eat much for the past several days. Continued monitoring of nutrition adequacy, nutritional supplements, PT OT while awaiting decision about hospice care. - Time Time Spent with patient: 35 or more minutes
[2019-08-02] MEDS ORDERED: LORAZEPAM 1 MG TABLET PO PRN (16:13)
[2019-08-02] MEDS: NORMAL SALINE 1000 ML 1,000 ML IV PRN (17:47)
[2019-08-02] MEDS: ACETAMINOPHEN 325 MG TABLET PO PRN (17:51)
[2019-08-02] MEDS: HEPARIN SOD (PORCINE) 5,000 UNIT/ML 1 ML VIAL SUBCUT SCH (21:00)
[2019-08-02] MEDS: MONTELUKAST SODIUM 10 MG TABLET PO SCH (21:08)
[2019-08-02] MEDS: DILTIAZEM HCL 30 MG TABLET PO SCH (21:08)
[2019-08-02] MEDS: MELATONIN 3 MG TABLET PO SCH (21:08)
[2019-08-02] MEDS: ERYTHROMYCIN 0.5% OPH OINTMENT 3.5 GM TUBE OS SCH (21:09)
[2019-08-02] MEDS: ONDANSETRON HCL INJ/PF 4 MG/2 ML SDV IV PRN (21:19)
[2019-08-02] MEDS: CYCLOSPORINE 0.05% OPH EMULSIO 0.4 ML DROPERETTE OU SCH (21:30)
[2019-08-03] MEDS: ACETAMINOPHEN 325 MG TABLET PO PRN ×2 (02:46→10:51)
[2019-08-03] MEDS: NORMAL SALINE 1000 ML 1,000 ML IV PRN ×2 (04:56→16:12)
[2019-08-03] MEDS ORDERED: METHYLPREDNISOLONE INJ 125 MG/2 ML SDV IV ONE (05:00)
[2019-08-03] MEDS: HEPARIN SOD (PORCINE) 5,000 UNIT/ML 1 ML VIAL SUBCUT SCH ×3 (05:05→21:22)
[2019-08-03 05:53] LABS: HEMATOCRIT 24.5 % (36.0-47.0); HEMOGLOBIN 8.7 g/dL (12.0-15.5); MEAN CORPUSCULAR HEMOGLOBIN 32.4 pg (27.0-33.4); MEAN CORPUSCULAR HGB CONC 35.3 g/dL (32.0-36.0); MEAN CORPUSCULAR VOLUME 92 fl (80-97); RED BLOOD COUNT 2.67 10^6/uL (3.72-5.28); RED CELL DISTRIBUTION WIDTH 18.4 % (11.5-14.0); WHITE BLOOD COUNT 4.7 10^3/uL (4.0-10.5)
[2019-08-03 06:07] LABS: ALBUMIN 2.6 g/dL (3.5-5.0); ALKALINE PHOSPHATASE 38 U/L (38-126); ANION GAP 6 (5-19); ASPARTATE AMINO TRANSFERASE 22 U/L (14-36); BILIRUBIN,TOTAL 0.4 mg/dL (0.2-1.3); BLOOD UREA NITROGEN 43 mg/dL (7-20); CARBON DIOXIDE 25 mmol/L (22-30); CHLORIDE 101 mmol/L (98-107); GLUCOSE 74 mg/dL (75-110); PHOSPHORUS 4.9 mg/dL (2.5-4.5); POTASSIUM 4.6 mmol/L (3.6-5.0)
[2019-08-03 06:36] LABS: ABSOLUTE LYMPHOCYTES# (MANUAL) 0.9 10^3/uL (0.5-4.7); ABSOLUTE MONOCYTES # (MANUAL) 0.3 10^3/uL (0.1-1.4); BASOPHILS % (MANUAL) 0 % (0-2); EOSINOPHILS % (MANUAL) 0 % (0-6); LYMPHOCYTES % (MANUAL) 19 % (13-45); MONOCYTES % (MANUAL) 7 % (3-13); SEGMENTED NEUTROPHILS % (MAN) 74 % (42-78); TOTAL CELLS COUNTED 100
[2019-08-03 06:39] LABS: TOXIC GRANULATION 1+; TOXIC VACUOLATION PRESENT
[2019-08-03 06:40] LABS: BURR CELLS SLIGHT; OVALOCYTES SLIGHT; PLATELET COMMENT DECREASED; PLATELET COUNT 89 10^3/uL (150-450); POIKILOCYTOSIS SLIGHT; SCHISTOCYTES SLIGHT
[2019-08-03 06:49] LABS: CALCIUM 12.6 mg/dL (8.4-10.2)
[2019-08-03] MEDS ORDERED: SENNOSIDES/DOCUSATE 8.6-50 MG 1 EACH TABLET PO PRN (08:11)
[2019-08-03] MEDS ORDERED: TRAMADOL HCL 50 MG TABLET PO PRN (08:14)
--- NOTE | 2019-08-03 08:21 | Progress Note ---
Provider Note Provider Note: I spoke with patient via telephone today. I also discussed her care with nurses this morning. She was able to sit on the edge of the bed and eat a few bites this morning. She is having new bone pain. She also does not remember when her last BM was. I discussed future plans with the patient. She states that she does not wish to go to a long term, but will if family is not able to make arrangements for her to be at home with 24 hour caregivers. She understands that her prognosis is very poor and that she will continue to decline over the next few weeks. She continues to request comfort measures and Hospice support if possible on discharge. She did receive pamidronate for symptom relief of her hypercalcemia and this has helped. Referral has been made to [facility] in the past, and they will be happy to admit her as soon as family agrees. I have tried to call her daughter again today but was unable to reach her. I will continue to try throughout the day. I am concerned that if she is admitted to a long term, with the COVID-19 restrictions, she will not be allowed to see any of her family in the short few weeks that she has left to live.
[2019-08-03] MEDS: ONDANSETRON HCL INJ/PF 4 MG/2 ML SDV IV PRN (08:53)
[2019-08-03] MEDS ORDERED: DOCUSATE SODIUM 100 MG CAPSULE PO SCH (10:00)
[2019-08-03] MEDS ORDERED: ASPIRIN 81 MG TABLET, ENT COATED PO SCH (10:00)
[2019-08-03] MEDS ORDERED: TRIAMTERENE/HYDROCHLOROTHIAZIDE 37.5-25 MG TABLET PO SCH (10:00)
[2019-08-03] MEDS ORDERED: LORATADINE 10 MG TABLET PO SCH (10:00)
[2019-08-03] MEDS ORDERED: CHOLECALCIFEROL (D3) 1,000 UNIT (25 MCG) TABLET PO SCH (10:00)
[2019-08-03] MEDS: DOCUSATE SODIUM 100 MG CAPSULE PO SCH (10:46)
[2019-08-03] MEDS: DILTIAZEM HCL 30 MG TABLET PO SCH ×2 (10:46→21:23)
[2019-08-03] MEDS: CYCLOSPORINE 0.05% OPH EMULSIO 0.4 ML DROPERETTE OU SCH ×2 (10:46→21:24)
--- NOTE | 2019-08-03 16:06 | PDOC PROGRESS REPORT ---
Subjective Progress Note for:: 08/03/19 Reason For Visit: HYPERCALCEMIA,MM,MACI Physical Exam Vital Signs: Temp Pulse Resp BP Pulse Ox 97.7 F 68 20 134/64 H 100 08/03/19 15:12 08/03/19 15:12 08/03/19 15:12 08/03/19 15:12 08/03/19 15:12 Intake & Output 08/02/19 08/03/19 08/04/19 06:59 06:59 06:59 Intake Total 2830 480 Output Total 650 300 Balance 2180 180 Weight 43.8 kg 43.8 kg Results Laboratory Results: 08/03/19 05:06 08/03/19 05:06 08/03/19 08/03/19 05:06 05:06 WBC 4.7 RBC 2.67 L Hgb 8.7 L Hct 24.5 L MCV 92 MCH 32.4 MCHC 35.3 RDW 18.4 H Plt Count 89 L Seg Neutrophils % Not Reportable Sodium 131.8 L Potassium 4.6 Chloride 101 Carbon Dioxide 25 Anion Gap 6 BUN 43 H Creatinine 3.06 H Est GFR ( Amer) 17 L Glucose 74 L Calcium 12.6 H* Phosphorus 4.9 H Magnesium 2.3 Total Bilirubin 0.4 AST 22 Alkaline Phosphatase 38 Total Protein 6.0 L Albumin 2.6 L 08/02/19 08/02/19 12:41 12:41 Creatine Kinase 29 L Troponin I 0.012 Impressions: Chest X-Ray 08/02/19 00:00 IMPRESSION: COPD without a superimposed acute cardiopulmonary process. Knee X-Ray 08/02/19 12:23 IMPRESSION: Status post TKA. The hardware is in anatomic alignment. There is no periprosthetic fracture or evidence of lipohemarthrosis. Assessment and Plan - Diagnosis (1) MACI (acute kidney injury) Is this a current diagnosis for this admission?: Yes Plan: Were hydrating her and trying to get her calcium down, monitoring her urine output (2) Hypercalcemia of malignancy Is this a current diagnosis for this admission?: Yes Plan: In addition to IV fluids, she is received pamidronate, calcium now trending down (3) Multiple myeloma Qualifiers: Multiple myeloma remission status: not in remission Qualified Code(s): C90.00 - Multiple myeloma not having achieved remission Is this a current diagnosis for this admission?: Yes Plan: Oncology has been consulted, patient is felt to be a good candidate for hospice. Were trying to make some arrangements for her. She was told that if she went to a facility that at this time she would not be able to receive visitors and the patient definitely does not want that. (4) Weakness Is this a current diagnosis for this admission?: Yes Plan: She fell at home and has a contusion on her face. She will need someone at home with her [id number]. - Time Time Spent with patient: 15-24 minutes
[2019-08-03] MEDS: MELATONIN 3 MG TABLET PO SCH (21:23)
[2019-08-03] MEDS: MONTELUKAST SODIUM 10 MG TABLET PO SCH (21:23)
[2019-08-03] MEDS: ERYTHROMYCIN 0.5% OPH OINTMENT 3.5 GM TUBE OS SCH (21:50)
[2019-08-04] MEDS: NORMAL SALINE 1000 ML 1,000 ML IV PRN ×2 (02:29→13:25)
[2019-08-04] MEDS: HEPARIN SOD (PORCINE) 5,000 UNIT/ML 1 ML VIAL SUBCUT SCH ×3 (06:35→21:34)
[2019-08-04] MEDS: PANTOPRAZOLE SODIUM 40 MG TABLET.DR PO SCH (07:49)
[2019-08-04] MEDS: LORATADINE 10 MG TABLET PO SCH (07:49)
[2019-08-04] MEDS: DILTIAZEM HCL 30 MG TABLET PO SCH ×2 (09:53→21:33)
[2019-08-04] MEDS: DOCUSATE SODIUM 100 MG CAPSULE PO SCH (09:53)
[2019-08-04] MEDS: CYCLOSPORINE 0.05% OPH EMULSIO 0.4 ML DROPERETTE OU SCH ×2 (09:53→21:33)
[2019-08-04] MEDS ORDERED: ONDANSETRON HCL INJ/PF 4 MG/2 ML SDV IV PRN (14:00)
[2019-08-04] MEDS ORDERED: PROMETHAZINE HCL INJ 25 MG/1 ML VIAL IV PRN (14:00)
[2019-08-04] MEDS ORDERED: TRAMADOL HCL 50 MG TABLET PO PRN (14:01)
[2019-08-04] MEDS ORDERED: ACETAMINOPHEN 325 MG TABLET PO PRN (14:05)
--- NOTE | 2019-08-04 17:06 | PDOC PROGRESS REPORT ---
Subjective Progress Note for:: 08/04/19 Subjective:: No adverse events overnight. Appetite is been fair. She is not having any abdominal pain. She agreed to go home with hospice. We are waiting for the arrangements to be made. Reason For Visit: HYPERCALCEMIA,MM,MACI Physical Exam Vital Signs: Temp Pulse Resp BP Pulse Ox 97.9 F 82 18 109/52 L 96 08/04/19 11:00 08/04/19 14:00 08/04/19 11:00 08/04/19 11:00 08/04/19 11:00 Intake & Output 08/03/19 08/04/19 08/05/19 06:59 06:59 06:59 Intake Total 2830 2600 1000 Output Total 650 1350 Balance 2180 1250 1000 Weight 43.8 kg 43.8 kg Physical exam: General: Awake, alert, oriented x3, no acute distress Respiratory: Clear to auscultation bilaterally, no wheezes, rales, or rhonchi Cardiac: Regular rate and rhythm, S1-S2 Abdomen: Soft, nontender, nondistended, normal bowel sounds, no guarding or rebound Extremities: No deformities, ambulates with assistive device, no edema Results Laboratory Results: 08/03/19 05:06 08/03/19 05:06 08/02/19 08/02/19 12:41 12:41 Creatine Kinase 29 L Troponin I 0.012 Impressions: Chest X-Ray 08/02/19 00:00 IMPRESSION: COPD without a superimposed acute cardiopulmonary process. Knee X-Ray 08/02/19 12:23 IMPRESSION: Status post TKA. The hardware is in anatomic alignment. There is no periprosthetic fracture or evidence of lipohemarthrosis. Assessment and Plan - Diagnosis (1) MACI (acute kidney injury) Is this a current diagnosis for this admission?: Yes Plan: Were hydrating her and trying to get her calcium down, monitoring her urine output (2) Hypercalcemia of malignancy Is this a current diagnosis for this admission?: Yes Plan: In addition to IV fluids, she is received pamidronate, calcium now trending down (3) Multiple myeloma Qualifiers: Multiple myeloma remission status: not in remission Qualified Code(s): C90.00 - Multiple myeloma not having achieved remission Is this a current diagnosis for this admission?: Yes Plan: Oncology has been consulted, patient is felt to be a good candidate for hospice. Were trying to make some arrangements for her. If the arrangements are made tomorrow, she can be discharged at that time. Patient is agreeable with this p elis. (4) Weakness Is this a current diagnosis for this admission?: Yes Plan: She fell at home and has a contusion on her face. She will need someone at home with her [id number]. - Time Time Spent with patient: 15-24 minutes
[2019-08-04] MEDS: MELATONIN 3 MG TABLET PO SCH (21:33)
[2019-08-04] MEDS: MONTELUKAST SODIUM 10 MG TABLET PO SCH (21:33)
[2019-08-04] MEDS: ERYTHROMYCIN 0.5% OPH OINTMENT 3.5 GM TUBE OS SCH (21:33)
[2019-08-05 00:52] VITALS: BP 124/61
[2019-08-05] MEDS: HEPARIN SOD (PORCINE) 5,000 UNIT/ML 1 ML VIAL SUBCUT SCH (05:31)
[2019-08-05 05:59] LABS: ANION GAP 6 (5-19); BLOOD UREA NITROGEN 39 mg/dL (7-20); CALCIUM 10.8 mg/dL (8.4-10.2); CARBON DIOXIDE 21 mmol/L (22-30); CHLORIDE 107 mmol/L (98-107); GLUCOSE 78 mg/dL (75-110); POTASSIUM 4.1 mmol/L (3.6-5.0)
[2019-08-05] MEDS: PANTOPRAZOLE SODIUM 40 MG TABLET.DR PO SCH (07:33)
[2019-08-05] MEDS: NORMAL SALINE 1000 ML 1,000 ML IV PRN ×2 (07:33→11:41)
[2019-08-05] MEDS: LORATADINE 10 MG TABLET PO SCH (07:33)
--- NOTE | 2019-08-05 07:38 | Progress Note ---
Provider Note Provider Note: I was not able to reach patient by phone this morning. Her Ca level has greatly improved. Patient and family have agreed to go home with Hospice as soon as arrangements can be made. Please let me know if there is anything else I can help with.
[2019-08-05] MEDS: DILTIAZEM HCL 30 MG TABLET PO SCH (09:07)
[2019-08-05] MEDS: CYCLOSPORINE 0.05% OPH EMULSIO 0.4 ML DROPERETTE OU SCH (09:07)
[2019-08-05] MEDS: DOCUSATE SODIUM 100 MG CAPSULE PO SCH (09:07)
--- NOTE | 2019-08-05 16:49 | PDOC DISCHARGE SUMMARY ---
Impression - Admit/DC Date/PCP Admission Date/Primary Care Provider: 08/02/19 14:23 NANI DEMPSEY MD Discharge Date: 08/05/19 - Discharge Diagnosis (1) MACI (acute kidney injury) Is this a current diagnosis for this admission?: Yes (2) Hypercalcemia of malignancy Is this a current diagnosis for this admission?: Yes (3) Multiple myeloma Is this a current diagnosis for this admission?: Yes (4) Weakness Is this a current diagnosis for this admission?: Yes - Additional Information Resuscitation Status: Do Not Resuscitate Discharge Diet: As Tolerated Discharge Activity: Balance Activity w/Rest, Supervised Activity Referrals: HOSPICE,HOME [Other] Prescriptions: Tramadol HCl [Ultram 50 mg Tablet] 50 mg PO Q6HP PRN #40 tablet PRN Reason: Home Medications: Aspirin [Ecotrin 81 mg EC Tablet] 81 mg PO DAILY 08/02/19 Cholecalciferol (Vitamin D3) [Vitamin D3 1000 Unit Tablet] 1,000 unit PO DAILY 08/02/19 Cyclosporine 0.05% Oph Emulsio [Restasis 0.05% Oph Emulsion Pf 0.4 ml] 1 drop OU Q12 08/02/19 Diltiazem HCl [Cardizem 30 mg Tablet] 30 mg PO Q12 08/02/19 Erythromycin Base [E-Mycin 0.5% Oph Ointment 3.5 gm] 1 applic OS QHS 08/02/19 Estrogens,Conjugated [Premarin 0.3 mg Tablet] 0.3 mg PO QHS 08/02/19 Loratadine [Claritin 10 mg Tablet] 10 mg PO DAILY 08/02/19 Lorazepam [Ativan 1 mg Tablet] 0.5 mg PO DAILYP PRN 08/02/19 Melatonin 3 mg PO QHS 08/02/19 Montelukast Sodium [Singulair 10 mg Tablet] 10 mg PO QHS 08/02/19 Ondansetron [Ondansetron Odt] 8 mg PO Q8HP PRN 08/02/19 Polyvinyl Alcohol/Povidone/Pf [Refresh Classic Eye Drops] 1 drop OU QID 08/02/19 Tramadol HCl [Ultram 50 mg Tablet] 50 mg PO Q6HP PRN #40 tablet 08/05/19 History of Present Illiness History of Present Illness: SINCERE KENT is a 89 year old female with history of possible multiple myeloma based of recent M spike last month, atrial fibrillation, who comes into the hospital for evaluation of weakness and debility. Patient is suspected to have multiple myeloma and is being followed by Dr. Lozada. This was based of M spike on SPEP/immunofixation. Patient had declined bone biopsy for confirmation of diagnosis. Over the past month patient has shown significant decline in functional status as well as sluggish behavior. 1 week ago, she was seen by and noted to be hypercalcemic but asymptomatic at the time. Bisphosphonate therapy was held off because of asymptomatic nature and renal function. Yesterday, she was at home with her friend was trying to help her up and patient felt too weak to stand. Subsequently brought to the hospital for evaluation. In the hospital patient was noted to have hypercalcemia and MACI. Referred to hospitalist service for admission. Patient states that she is extremely fatigued. Gets occasional pain in her knees. Denies abdominal pain. Hospital Course Hospital Course: With the use of IV fluids and pamidronate, we got her calcium down to 10.8. We also got her creatinine to trend down, it was at 2.23 at time of discharge. Oncology was following the patient. She had an improvement in her symptoms. She was able to eat. Her energy level was still very low. She decided that rather than go to a facility, she wanted to go home on hospice. Her family was in agreement with this plan. We encouraged her to stay hydrated as well as possible. Case management was consulted to arrange hospice. Everything was set up for the patient at her home and she was discharged home today with hospice. Physical Exam Vital Signs: Temp Pulse Resp BP Pulse Ox 97.7 F 98 18 124/61 97 08/05/19 11:56 08/05/19 11:56 08/05/19 11:56 08/05/19 11:56 08/05/19 11:56 Intake & Output 08/04/19 08/05/19 08/06/19 06:59 06:59 06:59 Intake Total 2600 2477 528 Output Total 1350 1900 Balance 1250 577 528 Weight 43.8 kg 43.8 kg Physical exam: General: Awake, alert, oriented x3, no acute distress Respiratory: Clear to auscultation bilaterally, no wheezes, rales, or rhonchi Cardiac: Regular rate and rhythm, S1-S2 Abdomen: Soft, nontender, nondistended, normal bowel sounds, no guarding or rebound Extremities: No deformities, ambulates with assistive device, no edema Results Laboratory Results: WBC 4.7 10^3/uL (4.0-10.5) 08/03/19 05:06 RBC 2.67 10^6/uL (3.72-5.28) L 08/03/19 05:06 Hgb 8.7 g/dL (12.0-15.5) L 08/03/19 05:06 Hct 24.5 % (36.0-47.0) L 08/03/19 05:06 MCV 92 fl (80-97) 08/03/19 05:06 MCH 32.4 pg (27.0-33.4) 08/03/19 05:06 MCHC 35.3 g/dL (32.0-36.0) 08/03/19 05:06 RDW 18.4 % (11.5-14.0) H 08/03/19 05:06 Plt Count 89 10^3/uL (150-450) L 08/03/19 05:06 Lymph % (Auto) Not Reportable 08/03/19 05:06 [place] % (Auto) Not Reportable 08/03/19 05:06 Eos % (Auto) Not Reportable 08/03/19 05:06 Baso % (Auto) Not Reportable 08/03/19 05:06 Absolute Neuts (auto) Not Reportable 08/03/19 05:06 Absolute Lymphs (auto) Not Reportable 08/03/19 05:06 Absolute Monos (auto) Not Reportable 08/03/19 05:06 Absolute Eos (auto) Not Reportable 08/03/19 05:06 Absolute Basos (auto) Not Reportable 08/03/19 05:06 Total Counted 100 08/03/19 05:06 Seg Neutrophils % Not Reportable 08/03/19 05:06 Seg Neuts % (Manual) 74 % (42-78) 08/03/19 05:06 Lymphocytes % (Manual) 19 % (13-45) 08/03/19 05:06 Monocytes % (Manual) 7 % (3-13) 08/03/19 05:06 Eosinophils % (Manual) 0 % (0-6) 08/03/19 05:06 Basophils % (Manual) 0 % (0-2) 08/03/19 05:06 Abs Neuts (Manual) 3.5 10^3/uL (1.7-8.2) 08/03/19 05:06 Abs Lymphs (Manual) 0.9 10^3/uL (0.5-4.7) 08/03/19 05:06 Abs Monocytes (Manual) 0.3 10^3/uL (0.1-1.4) 08/03/19 05:06 Absolute Eos (Manual) 0.0 10^3/uL (0.0-0.6) 08/03/19 05:06 Abs Basophils (Manual) 0.0 10^3/uL (0.0-0.2) 08/03/19 05:06 Toxic Granulation 1+ 08/03/19 05:06 Toxic Vacuolation PRESENT 08/03/19 05:06 Platelet Comment DECREASED 08/03/19 05:06 Poikilocytosis SLIGHT 08/03/19 05:06 Ovalocytes SLIGHT 08/03/19 05:06 Gisela Cells SLIGHT 08/03/19 05:06 Schistocytes SLIGHT 08/03/19 05:06 Sodium 134.1 mmol/L (137-145) L 08/05/19 05:19 Potassium 4.1 mmol/L (3.6-5.0) 08/05/19 05:19 Chloride 107 mmol/L (98-107) 08/05/19 05:19 Carbon Dioxide 21 mmol/L (22-30) L 08/05/19 05:19 Anion Gap 6 (5-19) 08/05/19 05:19 BUN 39 mg/dL (7-20) H 08/05/19 05:19 Creatinine 2.23 mg/dL (0.52-1.25) H 08/05/19 05:19 Est GFR ( Amer) 25 (>60) L 08/05/19 05:19 Est GFR (MDRD) Non-Af 21 (>60) L 08/05/19 05:19 Glucose 78 mg/dL (75-110) 08/05/19 05:19 Calcium 10.8 mg/dL (8.4-10.2) H 08/05/19 05:19 Phosphorus 4.9 mg/dL (2.5-4.5) H 08/03/19 05:06 Magnesium 2.3 mg/dL (1.6-2.3) 08/03/19 05:06 Total Bilirubin 0.4 mg/dL (0.2-1.3) 08/03/19 05:06 Direct Bilirubin 0.0 mg/dL (0.0-0.4) 08/03/19 05:06 Neonat Total Bilirubin Not Reportable 08/03/19 05:06 Neonat Direct Bilirubin Not Reportable 08/03/19 05:06 Neonat Indirect Bili Not Reportable 08/03/19 05:06 AST 22 U/L (14-36) 08/03/19 05:06 ALT 22 U/L (<35) 08/03/19 05:06 Alkaline Phosphatase 38 U/L (38-126) 08/03/19 05:06 Creatine Kinase 29 U/L (30-135) L 08/02/19 12:41 Troponin I 0.012 ng/mL 08/02/19 12:41 Total Protein 6.0 g/dL (6.3-8.2) L 08/03/19 05:06 Albumin 2.6 g/dL (3.5-5.0) L 08/03/19 05:06 PTH Intact 10.8 pg/mL (10.0-65.0) 08/02/19 13:15 Urine Color YELLOW 08/02/19 11:14 Urine Appearance SLIGHTLY-CLOUDY 08/02/19 11:14 Urine pH 6.0 (5.0-9.0) 08/02/19 11:14 Ur Specific [place] 1.008 08/02/19 11:14 Urine Protein NEGATIVE mg/dL (NEGATIVE) 08/02/19 11:14 Urine Glucose (UA) NEGATIVE mg/dL (NEGATIVE) 08/02/19 11:14 Urine Ketones NEGATIVE mg/dL (NEGATIVE) 08/02/19 11:14 Urine Blood NEGATIVE (NEGATIVE) 08/02/19 11:14 Urine Nitrite NEGATIVE (NEGATIVE) 08/02/19 11:14 Urine Bilirubin NEGATIVE (NEGATIVE) 08/02/19 11:14 Urine Urobilinogen NEGATIVE mg/dL (<2.0) 08/02/19 11:14 Ur Leukocyte Esterase NEGATIVE (NEGATIVE) 08/02/19 11:14 Urine WBC (Auto) 4 /HPF 08/02/19 11:14 Urine RBC (Auto) 0 /HPF 08/02/19 11:14 Squamous Epi Cells Auto 1 /HPF 08/02/19 11:14 Urine Ascorbic Acid 20 (NEGATIVE) H 08/02/19 11:14 08/02/19 12:41 Troponin I 0.012 Impressions: Chest X-Ray 08/02/19 00:00 IMPRESSION: COPD without a superimposed acute cardiopulmonary process. Knee X-Ray 08/02/19 12:23 IMPRESSION: Status post TKA. The hardware is in anatomic alignment. There is no periprosthetic fracture or evidence of lipohemarthrosis. Plan Time Spent: Greater than 30 Minutes Stroke Is this a Stroke Patient?: No Acute Heart Failure - Is this a Heart Failure Patient?: No
== END 2019-08-05 12:50 | disposition hospice, home (50) | DRG 683 ==
LOC: ER 10:47 → EH 14:23 → 4W 17:14
PROVIDERS: ADMIT Internal Medicine; ATTEND Family Medicine
DX: N17.9 Acute kidney failure, unspecified (principal); C90.00 Multiple myeloma not having achieved remission; I48.20 Chronic atrial fibrillation, unspecified; E83.52 Hypercalcemia; D47.2 Monoclonal gammopathy; K21.9 Gastro-esophageal reflux disease without esophagitis; F03.90 Unspecified dementia, unspecified severity, without behavioral disturbance, psychotic disturbance, mood disturbance, and anxiety; N18.3 Chronic kidney disease, stage 3 (moderate); S80.01XA Contusion of right knee, initial encounter; W18.11XA Fall from or off toilet without subsequent striking against object, initial encounter; Z60.2 Problems related to living alone; Y93.89 Activity, other specified; Y92.012 Bathroom of single-family (private) house as the place of occurrence of the external cause; Z79.82 Long term (current) use of aspirin; Z79.890 Hormone replacement therapy; Z79.899 Other long term (current) drug therapy
CPT/HCPCS: 36415; 71045; 80048; 80053; 81001; 82550; 83735; 83970; 84100; 84484; 85025; 85027; 93005; 93010; 96361; 96365; 99291; J2405; J2430; J2930; J3490; J7030; J7040